=== PATIENT | male | born 1960 | race Caucasian/White ===

== ENCOUNTER → 2019-06-08 | Outpatient (REF) ==
--- NOTE | 2019-06-08 13:39 | REP ---
Clinical: Pain. Technique: AP, lateral, open mouth views of the cervical spine. Findings: Mild osteopenia and early moderate multilevel degenerative changes include endplate sclerosis, disc space narrowing, and early marginal spurring/osteophyte formation. No acute fracture / compression injury or subluxation. Impression: Early moderate multilevel degenerative spondylosis. Electronically Signed by Myles Gao MD 06/08/2019 01:31 P
--- NOTE | 2019-06-08 13:40 | REP ---
Clinical: Pain. Technique: AP, lateral, coned-down views of the lumbosacral spine. Findings: No acute fracture / compression injury or subluxation. Moderate multilevel degenerative changes include endplate sclerosis, disc space narrowing, hypertrophic facet changes, and marginal spurring/early osteophyte formation. Findings most pronounced at L5-S1. Impression: Moderate multilevel degenerative spondylosis. Electronically Signed by Myles Gao MD 06/08/2019 01:32 P
== END ==
LOC: M SMT 13:00
PROVIDERS: ATTEND Internal Medicine
DX: Z00.00 Encounter for general adult medical examination without abnormal findings (principal)